=== PATIENT | male | born 1980 ===

== ENCOUNTER 2021-08-10 16:05 | Emergency (ER) | payer MEDICAID ==
[~2021-08-10] VITALS: Ht 170.2 cm; Wt 105.0 kg
[2021-08-10] MEDS ORDERED: SODIUM CHLORIDE 0.9% 1,000 ML IV ONE (16:30)
[2021-08-10] MEDS ORDERED: CLONIDINE 0.1MG TABLET PO ONE (16:30)
[2021-08-10] MEDS ORDERED: HALOPERIDOL LACTATE 5MG/ML VIAL IM ONE (16:30)
[2021-08-10] MEDS ORDERED: KETOROLAC 15MG/ML VIAL IV ONE (17:15)
[2021-08-10 21:43] VITALS: BP 157/81
== END 2021-08-10 22:04 | disposition home or self-care (01) ==
LOC: ER 16:05
DX: R11.2 Nausea with vomiting, unspecified (principal); F11.23 Opioid dependence with withdrawal; I49.9 Cardiac arrhythmia, unspecified; F17.210 Nicotine dependence, cigarettes, uncomplicated
CPT/HCPCS: 93005; 96361; 96372; 96374; 99285; J1630; J1885; J7030